=== PATIENT | male | born 1940 | race Caucasian/White ===

== ENCOUNTER 2019-06-27 08:16 | Emergency (ER) | payer MEDICARE, BC, SELFPAY ==
[2019-06-27 08:28] VITALS: BP 152/71; PULSE 71; RESP 15; TEMP 36.4; O2SAT 100; BMI 22.7
[2019-06-27] MEDS: FAMOTIDINE 20 MG/50 ML PIGGYBACK 200 MG IV (09:22)
[2019-06-27] MEDS: diphenhydrAMINE 50 MG/ML VIAL 25 MG IV (09:22)
[2019-06-27] MEDS: methylPREDNISolone 125 MG/2 ML VIAL IV (09:22)
--- NOTE | 2019-06-27 09:22 | ED.ALLEREA ---
HPI - Allergic Reaction General Chief complaint: Allergic Reaction Stated complaint: possible allergic reaction upper lip is swollen Time Seen by Provider: 06/27/19 08:20 Source: patient and family Mode of arrival: ambulatory Limitations: no limitations History of Present Illness HPI narrative: 79M nonsmoker with history of HTN presents with chief complaint of upper lip swelling since yesterday. He denies any injury, trouble swalling, breathing, or rash. He denies any known exposure to something new. He has frequent UTIs and took a dose of Macrobid yesterday, which is not new to him. Additionally, he takes lisinopril. He is otherwise well and free of complaint. MD complaint: allergic reaction and other Onset (ago): day(s) Exposure: medication Symptoms: lip swelling Severity: moderate Treatment prior to arrival: none Previous Allergic Reaction History: none Related Data Previous Rx's Medication Instructions Recorded cephalexin [Keflex] 500 mg PO QID 7 Days #28 cap 06/27/19 losartan 25 mg PO DAILY #30 tab 06/27/19 Allergies Allergy/AdvReac Type Severity Reaction Status Date / Time levofloxacin [From Levaquin] Allergy Unknown Verified 06/27/19 09:22 tetracycline Allergy Unknown Verified 06/27/19 09:22 lisinopril Allergy Swelling Verified 06/27/19 09:35 of Lip/Tongue/Throat nitrofurantoin Allergy Swelling Verified 06/27/19 09:35 [From Macrobid] of Lip/Tongue/Throat Review of Systems Constitutional Constitutional: Denies chills, Denies fatigue, Denies fever(s), Denies frequent falls, Denies lethargy and Denies weakness Eyes Eyes: Denies change in vision, Denies eye discharge, Denies irritation and Denies loss of vision ENT Ears, Nose, Mouth, and Throat: Denies change in voice, Denies dizziness, Denies neck pain, Denies sore throat and Denies throat swelling Comments: lip swelling Cardiovascular Cardiovascular: Denies chest pain, Denies irregular heart rhythm, Denies lightheadedness, Denies palpitations, Denies dyspnea, Denies dyspnea on exertion and Denies orthopnea Respiratory Respiratory: Denies cough, Denies dyspnea, Denies dyspnea on exertion and Denies wheezing Gastrointestinal Gastrointestinal: Denies abdominal pain, Denies change in bowel habits, Denies diarrhea, Denies nausea and Denies vomiting Genitourinary Genitourinary: Denies hematuria, Denies flank pain, Denies urinary incontinence and Denies urinary urgency Musculoskeletal Musculoskeletal: Denies back pain, Denies muscle weakness, Denies neck pain, Denies numbness and Denies tingling Integumentary/Breasts Skin/Breast: Denies pruritus, Denies erythema, Denies rash and Denies wounds Neurologic Neurologic: Denies behavioral changes, Denies confusion, Denies dizziness, Denies frequent falls, Denies loss of vision, Denies numbness, Denies tingling and Denies weakness Psychiatric Psychiatric: Denies anxiety, Denies behavioral changes, Denies confusion, Denies depression, Denies homicidal ideation and Denies suicidal ideation Endocrine Endocrine: Denies fatigue, Denies flushing and Denies palpitations Hematologic/Lymphatic Hematologic/Lymphatic: Denies easy bruising Allergic/Immunologic Allergic/Immunologic: Denies urticaria, Denies throat swelling and Denies wheezing [facility] Social History Smoking Status: Former smoker Exam Narrative Exam Narrative: GENERAL: [79] year old patient appears stated age. Well-nourished, well-developed patient, in mild distress. HEAD: Atraumatic. Normocephalic. EYES: Pupils equal round and reactive. Extraocular motions intact. No scleral icterus. No injection or drainage. ENT: Upper lip swelling Nose without bleeding, purulent drainage. Throat without erythema, tonsillar hypertrophy or exudate. Airway patent. No tongue swelling NECK: Trachea midline. Non tender CARDIOVASCULAR: Regular rate and rhythm without murmurs, gallops, or rubs. RESPIRATORY: Clear to auscultation. Breath sounds equal bilaterally. No wheezes, rales, or rhonchi. GASTROINTESTINAL: Abdomen soft, non-tender, nondistended. EXTREMITIES: No edema or joint tenderness. BACK: Nontender without deformity or crepitance. No flank tenderness. NEURO: AOx3. SKIN: No rash or erythema of visible areas Initial Vital Signs Initial Vital Signs: Vital Signs Temperature 97.6 F 06/27/19 08:28 Pulse Rate 71 06/27/19 08:28 Respiratory Rate 15 06/27/19 08:28 Blood Pressure 152/71 H 06/27/19 08:28 Pulse Oximetry 100 06/27/19 08:28 Course Orders Ordered: Discontinued Medications Diphenhydramine HCl (Benadryl) 25 mg IV NOW ONE Stop: 06/27/19 09:16 Last Admin: 06/27/19 09:22 Dose: 25 mg Documented by: BETH Famotidine (Pepcid) 20 mg in 50 mls @ 200 mls/hr IV NOW ONE Stop: 06/27/19 09:29 Last Infusion: 06/27/19 09:37 Dose: 0 mls/hr Documented by: Admin: 06/27/19 09:22 Dose: 200 mls/hr Documented by: BETH Methylprednisolone (Solu-Medrol 125 Mg Vial) 125 mg IV NOW ONE Stop: 06/27/19 09:16 Last Admin: 06/27/19 09:22 Dose: 125 mg Documented by: BETH Vital Signs Vital signs: Vital Signs - 8 hr 06/27/19 08:28 06/27/19 09:29 06/27/19 10:00 Temperature 97.6 F Pulse Rate 71 64 62 Respiratory Rate 15 16 13 Blood Pressure 152/71 H Blood Pressure [Left Arm] 136/66 148/63 H Pulse Oximetry 100 100 100 MDM - Allergic Reaction Lab Data Labs: Lab Results 06/27/19 Range/Units 09:30 Urine RBC 1-5/hpf (0-5/HPF) Urine WBC 5-10/hpf H (0-5/HPF) Urine Bacteria Occasional (0-1) (None) Ur Culture Indicated? Specimen cultured MDM Narrative Medical decision making narrative: 79-year-old male presents with upper lip swelling in the absence of other allergic findings including swelling of tongue, throat nor urticaria or difficulty breathing. He has been on lisinopril for quite some time and this may be a mild angioedema. There are no obvious instigating factors. I have discussed this with his primary care provider and we will stop the lisinopril and a new hypertensive therapy. Furthermore his urine noted UTI and he was given antibiotics. He is given extensive return precautions and both he and have had questions answered to their apparent satisfaction Discharge Plan Departure Patient Disposition: Home Clinical Impression: Adverse reaction to drug Qualifiers: Encounter type: initial encounter Qualified Code(s): T50.905A - Adverse effect of unspecified drugs, medicaments and biological substances, initial encounter Discharge Date/Time: 06/27/19 11:12 Instructions: DI for Urinary Tract Infection (UTI), DI for Adverse Drug Reaction -- Allergic Activity Restrictions/Additional Instructions: *You have been diagnosed with [adverse reaction to medication, likely lisinopril.] *What to do: *Take medications as directed: Please stop taking her lisinopril, I have written to a new prescription after consulting with her primary care provider *Follow up with your primary care provider as soon as possible upon returning to [place]. I contacted them today and they will call you later today or tomorrow to help schedule his follow-up *Return to ER if you should have any new, worsening or concerning symptoms Prescriptions: New losartan 25 mg tablet 25 mg PO DAILY Qty: 30 RF: 0 cephalexin [Keflex] 500 mg capsule 500 mg PO QID 7 Days Qty: 28 RF: 0
[2019-06-27 09:29] VITALS: BP 136/66; PULSE 64; RESP 16; O2SAT 100
[2019-06-27 10:00] VITALS: BP 148/63; PULSE 62; RESP 13; O2SAT 100
[2019-06-27 10:30] VITALS: BP 129/57; PULSE 66; RESP 17; O2SAT 100
[2019-06-27 11:15] VITALS: BP 129/57; PULSE 65; RESP 17; O2SAT 100
[2019-06-27 11:44] LABS: Bacteria Urine Occasional (0-1); Culture Indicated Urine Specimen Cultured; RBC Urine 1-5/HPF (0-5/HPF); WBC Urine 5-10/HPF (0-5/HPF)
== END 2019-06-27 11:12 | disposition home or self-care (01) ==
PROVIDERS: Emergency Provider Emergency Medicine
DX: R22.0 Localized swelling, mass and lump, head (principal); T37.8X5A Adverse effect of other specified systemic anti-infectives and antiparasitics, initial encounter
CPT/HCPCS: 36591; 81015; 86160; 87086; 96374; 96375; 99283; 99284; J1200; J2930